=== PATIENT | male | born 1980 | race Caucasian/White ===

== ENCOUNTER 2016-06-29 19:59 | Emergency (ER) | payer OTHER ==
[~2016-06-29] VITALS: Ht 180.3 cm; Wt 89.0 kg
[2016-06-29 20:15] VITALS: BP 147/99; PULSE 90; RESP 20; TEMP 98.7; O2SAT 97
--- NOTE | 2016-06-29 20:28 | PD ---
HPI Chief Complaint: Injury Time Seen by Provider: 20:28 Travel History International Travel<30 days: No Contact w/Intl Traveler<30days: No Traveled to known affect area: No History of Present Illness HPI 36 year old male presents to the ED for evaluation of left knee pain. Onset approximately 24 hours ago while roughhousing with his 15-year-old son. Patient states that he planted leg behind him, fell backwards onto the leg, heard and felt a few "pops." He has been ambulatory since the accident. However he states he feels like the leg is "wobbly" and unstable. He denies crepitus, giving way, increased pain with weightbearing, numbness, tingling, weakness or limitations to range of motion. He denies previous injury to the left knee. He was able to work today. No treatment attempted at home. PFSH Past Medical History Medical History: Denies Significant Hx Depression: Yes Diminished Hearing: No Tetanus Vaccination: < 5 Years Influenza Vaccination: Yes Past Surgical History Abdominal Surgery: Yes (Hernia) Other Surgery: Yes (Spider cyst ) Social History Alcohol Use: Yes (Occ.) Tobacco Use: Yes (< 1/2 PPD) Substance Use: No Allergies-Medications (Allergen,Severity, Reaction): Coded Allergies: No Known Allergies (Verified , 06/29/16) Reported Meds & Prescriptions Reported Meds & Active Scripts Active Ibuprofen 800 Mg Tab 800 Mg PO Q8H Review of Systems Except as stated in HPI: all other systems reviewed are Neg Physical Exam Narrative GENERAL: Well-nourished, well-developed white male in no acute distress. SKIN: Warm and dry. HEAD: Normocephalic. EYES: No scleral icterus. No injection or drainage. NECK: Supple, trachea midline. No JVD or lymphadenopathy. CARDIOVASCULAR: Regular rate and rhythm without murmurs, gallops, or rubs. RESPIRATORY: Breath sounds equal bilaterally. No accessory muscle use. GASTROINTESTINAL: Abdomen soft, non-tender, nondistended. MUSCULOSKELETAL: No cyanosis, or edema. FOCUSED LEFT LOWER EXTREMITY EXAM: Moderate edema. No patellar balloting. Extension and flexion of the knee elicits pain. Palpation of the medial and lateral joint line elicits pain. Varus, valgus stress testing elicits pain. Anterior drawer testing negative. 2+ DP pulse. Sensation intact to light touch distally. Cap refill less than 2 seconds. BACK: Nontender without obvious deformity. No CVA tenderness. Data Data Last Documented VS Vital Signs Date Time Temp Pulse Resp B/P Pulse Ox O2 Delivery O2 Flow Rate FiO2 06/29/16 20:15 98.7 90 20 147/99 97 Orders Knee, Complete (4vws) (06/29/16 20:26) Ice/Cold Pack (06/29/16 20:26) Crutches (06/29/16 21:26) ^ Christian Bandage (06/29/16 21:26) ^ Knee Immobilizer (06/29/16 21:26) Immobilizer Knee 20 Inch (06/29/16 ) MDM Medical Decision Making Medical Screen Exam Complete: Yes Emergency Medical Condition: Yes Differential Diagnosis MCL tear versus LCL tear versus ACL tear versus PCL tear versus meniscal tear versus joint effusion versus fracture versus dislocation versus other Narrative Course 36 year old male presents to the ED for evaluation of left knee pain. Onset approximately 24 hours ago while roughhousing with his 15-year-old son. Patient states that he planted leg behind him, fell backwards onto the leg, heard and felt a few "pops." Endorses instability of the leg in the medial and lateral direction. He has been ambulatory since the accident. He denies crepitus , giving way, increased pain with weightbearing, numbness, tingling, weakness or limitations to range of motion. He denies previous injury to the left knee. He was able to work today. Vitals reviewed. Focused left lower extremity exam reveals moderate edema. No patellar balloting. Extension and flexion of the knee elicits pain. Palpation of the medial and lateral joint line elicits pain. Varus, valgus stress testing elicits pain. Anterior drawer testing negative. 2+ DP pulse. Sensation intact to light touch distally. Cap refill less than 2 seconds. Ice pack was applied. X-rays of the knee reveal moderate joint effusion with no fracture or subluxation per radiology read. Test results of the x-ray with the patient. The knee was wrapped in an Christian wrap and immobilizer was placed. He is provided with a pair of crutches. He is instructed to rest, ice, elevate the extremity. Gentle toe-touch weightbearing as tolerated. Follow-up with the orthopedist for further evaluation. We discussed the importance of taking anti-inflammatories and resting the leg. He indicated understanding of the instructions and was amenable to the plan of care. This patient is stable and discharged home. Diagnosis Primary Impression: Joint effusion of knee Additional Impression: Left medial knee pain Referrals: Rodri Peguero MD Patient Instructions: General Instructions, Knee Immobilizer (ED), Knee Pain ( ED) Additional Instructions: Rest, ice, elevate the extremity. Apply ice no longer than 10-15 minutes per hour a few times a day. 800 mg ibuprofen up to 3 times a day as needed for pain. Return to normal, gentle activity as tolerated. Weight-bearing as tolerated. Wear brace except when showering or sleeping. No running, jumping activities until cleared by the orthopedist Follow up with Dr. Peguero this week as discussed Return to the ED for any urgent or emergent medical condition. Med/Other Pt SpecificInfo: Prescription(s) given Scripts Ibuprofen 800 Mg [id number] Mg PO Q8H #20 TAB Ref 0 Prov:Erwin Sánchez MD 06/29/16 Disposition: 01 DISCHARGE HOME Condition: Stable Marilia Pearson Jun 29, 2016 20:28
--- NOTE | 2016-06-29 21:18 | RADHPO ---
EXAM DATE/TIME: 06/29/2016 21:04 [facility] COMPARISON: No previous studies available for comparison. INDICATIONS : Left knee pain and swelling since last night when the patient heard a pop after wrestling. MEDICAL HISTORY : None. SURGICAL HISTORY : None. ENCOUNTER: Initial ACUITY: 1 day PAIN SCORE: 9/10 LOCATION: Left medial knee. FINDINGS: Bones of the left knee are intact and normally aligned. There is a moderate joint effusion evident. E xtra-articular soft tissues have a normal radiographic appearance. CONCLUSION: Nonspecific joint effusion. No fracture or subluxation. Helder Escalera MD on June 29, 2016 at 21:15 Board Certified Radiologist. This report was verified electronically.
[2016-06-29] MEDS ORDERED: IBUP800T23 PO (21:24)
== END 2016-06-29 22:08 | disposition home or self-care (01) ==
LOC: PHEFT 19:59
DX: M25.462 Effusion, left knee (principal); M25.562 Pain in left knee; Z72.0 Tobacco use; Y93.83 Activity, rough housing and horseplay
CPT/HCPCS: 73564; 99283; E0113; L1830

== ENCOUNTER 2017-01-25 16:23 | Emergency (ER) | payer OTHER ==
[~2017-01-25] VITALS: Ht 180.3 cm; Wt 87.6 kg
[~2017-01-25 16:23] MED LIST: IBUP800T23 PO
[2017-01-25 16:28] VITALS: BP 171/117; PULSE 94; RESP 20; TEMP 98.4; O2SAT 97
--- NOTE | 2017-01-25 16:54 | PD ---
HPI Chief Complaint: Alcohol/Drug Intoxication Time Seen by Provider: 16:42 Travel History International Travel<30 days: No Contact w/Intl Traveler<30days: No Traveled to known affect area: No History of Present Illness HPI This 36-year-old male says he been feeling a little fuzzy. He is a nonalcohol john for 5 or 6 days. He has a history of alcohol abuse in the past. He denies recent drug use. He does have a history of hepatitis C. He had some pain in the right upper quadrant which then moved over to the mid abdomen and lower chest area. He has been feeling shaky. There is been no vomiting or diarrhea. Pain is mild to moderate at this time PFS Past Medical History Depression: Yes Diminished Hearing: No Influenza Vaccination: No ?: Not Past Surgical History Surgical History: No Previous Surgery Abdominal Surgery: Yes (Hernia) Other Surgery: Yes (Spider cyst ) Social History Alcohol Use: Yes (Occ.) Tobacco Use: Yes (< 1/2 PPD) Substance Use: No Allergies-Medications (Allergen,Severity, Reaction): Coded Allergies: No Known Allergies (Verified , 01/25/17) Reported Meds & Prescriptions Reported Meds & Active Scripts Active No Active Prescriptions or Reported Medications Review of Systems General / Constitutional: No: Fever, Chills Eyes: No: Diploplia, Blurred Vision HENT: No: Headaches, Vertigo Cardiovascular: Positive: Palpitations, No: Chest Pain or Discomfort Respiratory: No: Cough, Shortness of Breath Gastrointestinal: No: Nausea, Vomiting Genitourinary: No: Urgency, Frequency Skin: No Rash Neurologic: No: Weakness Psychiatric: Positive: Anxiety, Substance Abuse Physical Exam Narrative GENERAL: Well developed male. There is a mild tremor SKIN: Focused skin assessment warm/dry. HEAD: Atraumatic. Normocephalic. EYES: Pupils equal and round. No scleral icterus. No injection or drainage. ENT: No nasal bleeding or discharge. Mucous membranes pink and moist. NECK: Trachea midline. No JVD. CARDIOVASCULAR: Regular rate and rhythm. No murmur appreciated. RESPIRATORY: No accessory muscle use. Clear to auscultation. Breath sounds equal bilaterally. GASTROINTESTINAL: Abdomen soft, epigastric and right upper quadrant tenderness without guarding or rigidity, nondistended. Hepatic and splenic margins not palpable. MUSCULOSKELETAL: No obvious deformities. No clubbing. No cyanosis. No edema. NEUROLOGICAL: Awake and alert. No obvious cranial nerve deficits. Motor grossly within normal limits. Normal speech. PSYCHIATRIC: Appropriate mood and affect; insight and judgment normal. Data Data Last Documented VS Vital Signs Date Time Temp Pulse Resp B/P (MAP) Pulse Ox O2 Delivery O2 Flow Rate FiO2 01/25/17 16:28 98.4 94 20 171/117 (135) 97 Orders Orders Complete Blood Count With Diff (01/25/17 16:47) Comprehensive Metabolic Panel (01/25/17 16:47) Lipase (01/25/17 16:47) Magnesium (Mg) (01/25/17 16:47) Sodium Chlor 0.9% 1000 Ml Inj (Ns 1000 M (01/25/17 17:00) Sodium Chlor 0.9% 1000 Ml Inj (Ns 1000 M (01/25/17 17:00) Pantoprazole Inj (Protonix Inj) (01/25/17 17:00) Lorazepam Inj (Ativan Inj) (01/25/17 17:00) Electrocardiogram (01/25/17 16:54) Labs Laboratory Tests Test 01/25/17 17:05 White Blood Count 6.0 TH/MM3 Red Blood Count 4.85 MIL/MM3 Hemoglobin 15.4 GM/DL Hematocrit 44.7 % Mean Corpuscular Volume 92.2 FL Mean Corpuscular Hemoglobin 31.7 PG Mean Corpuscular Hemoglobin Concent 34.4 % Red Cell Distribution Width 13.3 % Platelet Count 207 TH/MM3 Mean Platelet Volume 7.1 FL Neutrophils (%) (Auto) 60.0 % Lymphocytes (%) (Auto) 27.8 % Monocytes (%) (Auto) 7.2 % Eosinophils (%) (Auto) 4.2 % Basophils (%) (Auto) 0.8 % Neutrophils # (Auto) 3.6 TH/MM3 Lymphocytes # (Auto) 1.7 TH/MM3 Monocytes # (Auto) 0.4 TH/MM3 Eosinophils # (Auto) 0.3 TH/MM3 Basophils # (Auto) 0.0 TH/MM3 CBC Comment DIFF FINAL Differential Comment Blood Urea Nitrogen 7 MG/DL Creatinine 0.88 MG/DL Random Glucose 96 MG/DL Total Protein 7.5 GM/DL Albumin 3.6 GM/DL Calcium Level 8.6 MG/DL Magnesium Level 1.9 MG/DL Alkaline Phosphatase 72 U/L Aspartate Amino Transf (AST/SGOT) 58 U/L Alanine Aminotransferase (ALT/SGPT) 112 U/L Total Bilirubin 0.4 MG/DL Sodium Level 137 MEQ/L Potassium Level 3.9 MEQ/L Chloride Level 105 MEQ/L Carbon Dioxide Level 25.4 MEQ/L Anion Gap 7 MEQ/L Estimat Glomerular Filtration Rate 99 ML/MIN Lipase 134 U/L MDM Medical Decision Making Medical Screen Exam Complete: Yes Emergency Medical Condition: Yes Medical Record Reviewed: Yes Differential Diagnosis Differential includes alcoholic gastritis, hepatitis, withdrawal Narrative Course Liver function tests are just minimally elevated. Lab work is otherwise unremarkable. He's been given some fluids and Ativan and feels better. He'll be released with prescription for Librium Diagnosis Primary Impression: Gastritis Qualified Codes: K29.20 - Alcoholic gastritis without bleeding Scripts Chlordiazepoxide HCl (Chlordiazepoxide HCl) 25 Mg Capsule 1 TAB PO Q6HR for Alcohol Detox, #10 Prov: Willi Leon MD 01/25/17 Disposition: 01 DISCHARGE HOME Condition: Stable Willi Leon MD Jan 25, 2017 16:54
[2017-01-25] MEDS ORDERED: SODIUM CHLOR 0.9% 1000 ML INJ 1,000 ML IV ONE ×2 (17:00)
[2017-01-25] MEDS ORDERED: PANTOPRAZOLE SODIUM 40 MG VIAL IV PUSH ONE (17:00)
[2017-01-25] MEDS ORDERED: LORazepam 2 MG/ML VIAL IV PUSH ONE (17:00)
[2017-01-25 17:09] LABS: AUTOMATED NEUTROPHIL # 3.6 TH/MM3 (1.8-7.7); BASOPHIL % 0.8 % (0.0-2.0); EOSINOPHIL # 0.3 TH/MM3 (0-0.4); EOSINOPHIL % 4.2 % (0.0-4.0); HEMATOCRIT 44.7 % (39.0-51.0); HEMO FLAGS DIFF FINAL; LYMPH % 27.8 % (9.0-44.0); LYMPHOCYTE # 1.7 TH/MM3 (1.0-4.8); MEAN CELL VOLUME 92.2 FL (80.0-100.0); MEAN CORPUSCULAR HEMOGLOBIN 31.7 PG (27.0-34.0); MEAN CORPUSCULAR HGB CONC 34.4 % (32.0-36.0); MONO % 7.2 % (0.0-8.0); PLATELET COUNT 207 TH/MM3 (150-450); RED BLOOD COUNT 4.85 MIL/MM3 (4.50-5.90); RED CELL DISTRIBUTION WIDTH 13.3 % (11.6-17.2)
[2017-01-25 17:28] LABS: CHLORIDE 105 MEQ/L (98-107); POTASSIUM 3.9 MEQ/L (3.5-5.1); SODIUM (NA) 137 MEQ/L (136-145)
[2017-01-25 17:32] LABS: ANION GAP 7 MEQ/L (5-15); BICARBONATE 25.4 MEQ/L (21.0-32.0); BLOOD UREA NITROGEN 7 MG/DL (7-18); MAGNESIUM 1.9 MG/DL (1.5-2.5)
[2017-01-25 17:35] LABS: ALT (GPT) 112 U/L (12-78); AST (GOT) 58 U/L (15-37); GLOMERULAR FILTRATION RATE 99 ML/MIN (>89)
[2017-01-25 17:36] LABS: TOTAL BILIRUBIN ADULT 0.4 MG/DL (0.2-1.0)
[2017-01-25 17:38] LABS: ALKALINE PHOSPHATASE 72 U/L (45-117)
[2017-01-25 18:06] VITALS: BP 153/68; PULSE 82; RESP 16; O2SAT 99
[2017-01-25] MEDS ORDERED: CHLO25CA9 PO (18:07)
--- NOTE | 2017-01-26 20:57 | EKG ---
Date Performed: 01/25/2017 Time Performed: 17:00:02 PTAGE: 36 years EKG: Sinus rhythm NORMAL ECG NO PREVIOUS TRACING DOCTOR: Ronak Navas Interpretating Date/Time 01/26/2017 20:49:41
== END 2017-01-25 18:40 | disposition home or self-care (01) ==
LOC: PHED 16:23
DX: K29.20 Alcoholic gastritis without bleeding (principal); F17.200 Nicotine dependence, unspecified, uncomplicated; Z79.899 Other long term (current) drug therapy
CPT/HCPCS: 80053; 83690; 83735; 85025; 93005; 96361; 96374; 96375; 99284; C9113; J2060; J7030

== ENCOUNTER 2017-10-04 22:11 | Emergency (ER) | payer SELFPAY ==
[~2017-10-04] VITALS: Ht 177.8 cm; Wt 78.0 kg
[~2017-10-04 22:11] MED LIST changes: +CHLO25CA9 PO; -IBUP800T23 PO
[2017-10-04 22:33] VITALS: BP 144/77; PULSE 94; RESP 15; TEMP 98.7; O2SAT 95
--- NOTE | 2017-10-04 22:54 | PD ---
HPI Chief Complaint: Medical Clearance Time Seen by Provider: 22:36 Travel History International Travel<30 days: No Contact w/Intl Traveler<30days: No Traveled to known affect area: No History of Present Illness HPI Patient is a 37-year-old male presenting to the emergency department from [facility] for medical clearance. Patient was brought there under [place] act, while there he fell and hit his head. Patient is intoxicated, he reports that he also used heroin. He reports a headache but denies any nausea, vomiting , dizziness, visual changes. Patient does not rate his pain, he is less than fully cooperative with exam likely secondary to intoxication. [facility] Past Medical History Medical History: Unable to Obtain Depression: Yes Diminished Hearing: No Past Surgical History Surgical History: Unable to Obtain Abdominal Surgery: Yes (Hernia) Other Surgery: Yes (Spider cyst ) Social History Alcohol Use: Yes (Occ.) Tobacco Use: Yes (< 1/2 PPD) Substance Use: Yes Allergies-Medications (Allergen,Severity, Reaction): Coded Allergies: No Known Allergies (Verified , 01/25/17) Reported Meds & Prescriptions Reported Meds & Active Scripts Active Chlordiazepoxide HCl 25 Mg Capsule 1 Tab PO Q6HR Review of Systems ROS Limitations: Intoxication Except as stated in HPI: all other systems reviewed are Neg HENT: Positive: Headaches Physical Exam Narrative GENERAL: Well-developed, well-nourished, alert intoxicated appearing male SKIN: Warm and dry. HEAD: Normocephalic. 2 small contusion to anterior scalp. Abrasion to forehead EYES: Pupils equal and round. No scleral icterus. No injection or drainage. Extraocular movements are intact. ENT: No nasal bleeding or discharge. Mucous membranes pink and moist. NECK: Trachea midline. No JVD. CARDIOVASCULAR: Regular rate and rhythm. RESPIRATORY: No accessory muscle use. Clear to auscultation. Breath sounds equal bilaterally. GASTROINTESTINAL: Abdomen soft, non-tender, nondistended. Hepatic and splenic margins not palpable. MUSCULOSKELETAL: Extremities without clubbing, cyanosis, or edema. No obvious deformities. NEUROLOGICAL: Awake and alert. No obvious cranial nerve deficits. Motor grossly within normal limits. Five out of 5 muscle strength in the arms and legs. Normal speech. PSYCHIATRIC: Depressed mood and affect; insight and judgment normal. Data Data Last Documented VS Vital Signs Date Time Temp Pulse Resp B/P (MAP) Pulse Ox O2 Delivery O2 Flow Rate FiO2 10/04/17 22:33 98.7 94 15 144/77 (99) [address] Brain W/O Iv Contrast(Rout) (10/04/17 ) Ct Cerv Spine W/O Contrast (10/04/17 ) MDM Medical Decision Making Medical Screen Exam Complete: Yes Emergency Medical Condition: Yes Interpretation(s) Last Impressions Head CT 10/04/17 0000 Signed Impressions: CONCLUSION: Unremarkable study except for chronic sinusitis left sphenoid sinu s. Cervical Spine CT 10/04/17 0000 Signed Impressions: CONCLUSION: Unremarkable study. Vital Signs Date Time Temp Pulse Resp B/P (MAP) Pulse Ox O2 Delivery O2 Flow Rate FiO2 10/04/17 22:33 98.7 94 15 144/77 (99) 95 Differential Diagnosis Contusion versus hemorrhage versus fracture versus other Narrative Course Patient is 37-year-old male presenting from [facility] for medical clearance after falling and hitting his head. Patient has no focal deficits on exam. Patient is clearly intoxicated. CT scans ordered and pending. Patient' s vital signs are stable. CT scan of the brain and cervical spine are negative for acute abnormalities. Patient is medically cleared to return to [facility]. Diagnosis Primary Impression: Contusion of head Qualified Codes: S00.03XA - Contusion of scalp, initial encounter Additional Impressions: Fall Qualified Codes: W19.XXXA - Unspecified fall, initial encounter Intoxication Referrals: [facility] Patient Instructions: Contusion in Adults (ED), General Instructions, Head Injury (ED) Additional Instructions: Return to emergency department immediately for any new or worsening symptoms Avoid excessive intake of alcohol Drink more water Med/Other Pt SpecificInfo: No Change to Meds Disposition: 65 DISC TO PSYCH CARE FACILITY Condition: Stable Avrun,Noreenavinash MATHIAS October 04, 2017 22:54
--- NOTE | 2017-10-04 23:32 | RADRPT ---
EXAM DATE: 10/04/2017 11:28 PM EDT AGE/SEX: 37 years / Male INDICATIONS: Trauma fall, laceration to forehead. CLINICAL DATA: This is the patient's initial encounter. Patient reports that signs and symptoms have been present for 1 day and indicates a pain score of 0/10. MEDICAL/SURGICAL HISTORY: None. None. RADIATION DOSE: 64.63 CTDI (mGy) COMPARISON: No prior exams available for comparison. TECHNIQUE: CT of the head without contrast. Using automated exposure control and adjustment of the mA and/or kV according to patient size, radiation dose was kept as low as reasonably achievable to ob tain optimal diagnostic quality images. FINDINGS: There is no evidence for intracranial hemorrhage, mass effect, mass lesions, edema, or extra-axial fl uid collections. The visualized bony structures appear intact. The ventricles are normal size for t he patient's age. There is chronic mucoperiosteal thickening within the left sphenoid sinus. There a re no signs of acute infarction for technique. CONCLUSION: Unremarkable study except for chronic sinusitis left sphenoid sinus. Electronically signed by: Alli Quiñones MD 10/04/2017 11:30 PM EDT
--- NOTE | 2017-10-04 23:38 | RADRPT ---
EXAM DATE: 10/04/2017 11:31 PM EDT AGE/SEX: 37 years / Male INDICATIONS: Trauma, fall. CLINICAL DATA: This is the patient's initial encounter. Patient reports that signs and symptoms have been present for 1 day and indicates a pain score of 0/10. MEDICAL/SURGICAL HISTORY: None. None. RADIATION DOSE: 20.37 CTDI (mGy) COMPARISON: No prior exams available for comparison. TECHNIQUE: Contiguous axial images were obtained using helical multirow detector technique. The vol umetric data was post-processed with multiplanar reconstruction in oblique axial, sagittal, and coron al planes. Using automated exposure control and adjustment of the mA and/or kV according to patient s ize, radiation dose was kept as low as reasonably achievable to obtain optimal diagnostic quality liz ges. FINDINGS: No significant subluxation or soft tissue swelling is seen. No definite fracture is identified for t echnique. C2-C3: No appreciable compromise to the thecal sac, exiting nerve roots are seen. The neural foramin a are patent bilaterally. No appreciable thecal sac stenosis is seen. C3-C4: No appreciable compromise to the thecal sac, exiting nerve roots are seen. The neural foramin a are patent bilaterally. No appreciable thecal sac stenosis is seen. C4-C5: No appreciable compromise to the thecal sac, exiting nerve roots are seen. The neural foramin a are patent bilaterally. No appreciable thecal sac stenosis is seen. C5-C6: No appreciable compromise to the thecal sac, exiting nerve roots are seen. The neural foramin a are patent bilaterally. No appreciable thecal sac stenosis is seen. C6-C7: No appreciable compromise to the thecal sac, exiting nerve roots are seen. The neural foramin a are patent bilaterally. No appreciable thecal sac stenosis is seen. C7-T1: No appreciable compromise to the thecal sac, exiting nerve roots are seen. The neural foramin a are patent bilaterally. No appreciable thecal sac stenosis is seen. CONCLUSION: Unremarkable study. Electronically signed by: Alli Quiñones MD 10/04/2017 11:37 PM EDT
== END 2017-10-05 00:29 ==
LOC: NEPD 22:11
DX: S00.03XA Contusion of scalp, initial encounter (principal); F10.920 Alcohol use, unspecified with intoxication, uncomplicated; F17.200 Nicotine dependence, unspecified, uncomplicated; W19.XXXA Unspecified fall, initial encounter
CPT/HCPCS: 70450; 72125